=== PATIENT | male | born 1960 | race Caucasian/White ===

== ENCOUNTER 2023-07-22 06:09 | Day surgery (SDC) | payer OTHER, SELFPAY ==
[2023-07-22] VITALS (13 sets, daily range): BP systolic 95–117; BP diastolic 62–93; BMI 29.7
[2023-07-22 07:12] LABS: Glucose - Point of Care 135 mg/dl (70-99)
[2023-07-22 08:58] LABS: Glucose - Point of Care 163 mg/dl (70-99)
[2023-07-22 09:56] LABS: Glucose - Point of Care 184 mg/dl (70-99)
--- NOTE | 2023-07-22 12:06 | PTCARENOTE ---
Addendum 0950 Patient received reversal agent post EUS and brought to PACU post procedure for 2 HR monitoring post reversal agent. Patient awake, talkative, VSS remains on RA. See nursing flow sheet for full assessment.
== END 2023-07-22 12:15 | disposition home or self-care (01) ==
LOC: SDS 06:09
PROVIDERS: ATTENDING PHYSICIAN Internal Medicine Gastroenterology
DX: K86.9 Disease of pancreas, unspecified (principal); K22.2 Esophageal obstruction; K22.89 Other specified disease of esophagus; R93.3 Abnormal findings on diagnostic imaging of other parts of digestive tract; Z85.71 Personal history of Hodgkin lymphoma
CPT/HCPCS: 43242; 88172; 88173; 88305; 82962; 88341; 88342

== ENCOUNTER 2023-11-08 06:16 | Day surgery (SDC) | payer OTHER, SELFPAY ==
[2023-11-08 09:11] LABS: Glucose - Point of Care 147 mg/dl (70-99)
[2023-11-08 09:31] VITALS: BP 143/73
[2023-11-08 09:42] VITALS: BMI 26.0
[2023-11-08 11:08] LABS: Glucose - Point of Care 117 mg/dl (70-99)
[2023-11-08] MEDS: SOLU-CORTEF 100 MG IV (12:20)
[2023-11-08 14:31] VITALS: BP 113/64
[2023-11-08 14:45] VITALS: BP 116/63
[2023-11-08 15:00] VITALS: BP 116/58
== END 2023-11-08 15:22 | disposition home or self-care (01) ==
LOC: SDS 06:16
PROVIDERS: ATTENDING PHYSICIAN Internal Medicine Gastroenterology
DX: C15.4 Malignant neoplasm of middle third of esophagus (principal); K22.10 Ulcer of esophagus without bleeding; K22.2 Esophageal obstruction; K22.89 Other specified disease of esophagus; R13.13 Dysphagia, pharyngeal phase; Z79.01 Long term (current) use of anticoagulants
CPT/HCPCS: 43237; 43249; 43239; 88305; 82962; 88342; C1726